=== PATIENT | female | born 1955 | race Caucasian/White ===

== ENCOUNTER 2017-11-19 19:35 | Emergency (ER) | payer BC ==
[~2017-11-19] VITALS: Ht 167.6 cm; Wt 94.1 kg
[2017-11-19 19:52] VITALS: Ht 167.6 cm; Wt 94.1 kg
[2017-11-19 23:20] VITALS: BP 145/68
== END 2017-11-19 23:20 | disposition home or self-care (01) ==
LOC: ED 19:35
DX: S52.532A Colles' fracture of left radius, initial encounter for closed fracture (principal); S01.01XA Laceration without foreign body of scalp, initial encounter; M54.2 Cervicalgia; S40.011A Contusion of right shoulder, initial encounter; I10 Essential (primary) hypertension; G89.29 Other chronic pain; Z87.39 Personal history of other diseases of the musculoskeletal system and connective tissue; Z88.5 Allergy status to narcotic agent; W01.0XXA Fall on same level from slipping, tripping and stumbling without subsequent striking against object, initial encounter; Y93.89 Activity, other specified; Y99.8 Other external cause status; Y92.89 Other specified places as the place of occurrence of the external cause
CPT/HCPCS: 90714; A4570; J2001; J3010; Q0092; Q0162